=== PATIENT | female | born 1940 | race Caucasian/White ===

== ENCOUNTER 2021-08-25 14:20 | Observation (INO) | payer MEDICARE, SELFPAY ==
[2021-08-25] VITALS (79 sets, daily range): BP systolic 102–150; BP diastolic 46–104; PULSE 50–77; RESP 11–23; TEMP 36.7–37.1; O2SAT 65–100
--- NOTE | ~2021-08-25 | XR_ITS ---
EXAMINATION: XR chest 1V portable Exam Date/Time: 08/25/2021 15:20 CDT CLINICAL HISTORY: cardioversion, POOR HISTORIAN, HTN Comparison: None available RESULT: Lines, tubes, and devices: None. Lungs and pleura: Calcified left upper lung granuloma. Senescent changes. Left lower and right basil ar scarring. Cardiomediastinal silhouette: Aortic arch calcifications, otherwise unremarkable cardiomediastinal s ilhouette. Other: No acute osseous or upper abdominal finding. IMPRESSION: No acute cardiopulmonary process. Reviewed, dictated and finalized at location K.
--- NOTE | 2021-08-25 14:28 | ECG_ITS ---
Measurements Intervals [place] Rate: 63 P: -39 MD: 170 QRS: -35 QRSD: 143 T: 147 QT: 433 QTc: 444 Interpretive Statements SINUS RHYTHM WITH OCCASIONAL VENTRICULAR PREMATURE COMPLEXES MARKED LEFT AXIS DEVIATION [QRS AXIS < -30] INTRAVENTRICULAR CONDUCTION DELAY [130+ ms QRS DURATION] NO PREVIOUS ECG AVAILABLE FOR COMPARISON Electronically Signed On 08-26-2021 6:58:00 CDT by Hailey Franco M.D.
--- NOTE | 2021-08-25 14:43 | PC.NURSE ---
Pt to ER via [facility]. Pt was reportedly cardioverted during transport and had an improvement in condition. pt was also given amiodarone 150 mg bolus. pt is in no acute distress, only c/o being cold. Cardiac monitoring and defib on patient at this time. Son is at bedside. Will monitor patient for change in condition. Pt was seen at time of arrival by BRITTA Shah.
--- NOTE | 2021-08-25 14:45 | ED.SYNCOPE ---
HPI - Syncope General Chief Complaint: Syncope <Hernan Shah MD - Last Filed: 08/26/21 06:53> Stated Complaint: s/p syncope, vtach, cardioversion <Hernan Shah MD - Last Filed: 08/26/21 06:53> Time Seen by Provider: 08/25/21 14:33 <Hernan Shah MD - Last Filed: 08/26/21 06:53> Source: patient, EMS and RN notes reviewed <Hernan Shah MD - Last Filed: 08/26/21 06:53> History of Present Illness HPI narrative: Patient presents with syncope. Patient was at the [facility] when she passed out and EMS was called and patient was noted to be only responsive to sternal rub. EMS did a rhythm check and noted patient was in V. tach there is synchronized cardioversion patient was returned to normal sinus rhythm and became alert and responsive. EMS also gave 150 of amiodarone and transported the patient to the ER for further evaluation. Patient has no complaints at this time. She denied prodrome prior to the event such as chest pain shortness of breath or lightheadedness. Patient reports she just passed out. She denies any recent complaints of chest pain or lightheadedness denies any recent cough, congestion or fevers. She denies any major changes in appetite. Patient reports prior history of PR several years ago she does see cardiology Dr. Barr in [place]. <Hernan Shah MD - Last Filed: 08/26/21 06:53> Related Data Home Medications: Home Medications Medication Instructions Recorded Confirmed carvedilol 6.25 mg PO BID 08/25/21 08/25/21 nitroglycerin 0.4 mg SUBLINGUAL Q5-15M PRN 08/25/21 08/25/21 quinapril 10 mg PO DAILY 08/25/21 08/25/21 simvastatin 40 mg PO HS 08/25/21 08/25/21 spironolactone 25 mg PO DAILY 08/25/21 08/25/21 <Hernan Shah MD - Last Filed: 08/26/21 06:53> Allergies/Adverse Reactions: Allergies Allergy/AdvReac Type Severity Reaction Status Date / Time No Known Allergies Verified 10/16/10 10:06 <Hernan Shah MD - Last Filed: 08/26/21 06:53> Review of Systems Review of Systems: CONSTITUTIONAL: Denies fever, chills, or sweats. EYES: Denies visual changes, redness, or discharge. ENT: Denies rhinorrhea, congestion, sore throat, or otalgia. CARDIOVASCULAR: Denies chest pain, palpitations, or edema. RESPIRATORY: Denies cough or dyspnea. GASTROINTESTINAL: Denies abdominal pain, nausea, vomiting, or diarrhea. GENITOURINARY: Denies dysuria or hematuria. SKIN: Denies rash or itching. MUSCULOSKELETAL: Denies back pain, joint pain, or myalgia. NEUROLOGIC: Denies headache, numbness, dizziness, or weakness. PSYCHIATRIC: Denies anxiety or depression. <Hernan Shah MD - Last Filed: 08/26/21 06:53> All systems reviewed & are unremarkable except as noted in HPI and below <Hernan Shah MD - Last Filed: 08/26/21 06:53> [facility] Past Medical History Medical History: Medical History (Updated 08/26/21 @ 04:00 by Sherine Chaudhari DO) Acquired female bladder prolapse CHF (congestive heart failure) Coronary artery disease Possible old PR noted on her EKG Dementia Diabetes mellitus type 2, diet-controlled Hyperlipidemia Hypertension <Hernan Shah MD - Last Filed: 08/26/21 06:53> Surgical History Surgical History: Surgical History (Updated 08/26/21 @ 03:54 by Sherine Chaudhari DO) History of bilateral cataract extraction History of carpal tunnel surgery of right wrist <Hernan Shah MD - Last Filed: 08/26/21 06:53> Family History Family History: Family History (Updated 08/26/21 @ 03:53 by Sherine Chaudhari DO) Mother Diabetes mellitus Cancer Father Cancer <Hernan Shah MD - Last Filed: 08/26/21 06:53> Social History Social History: Social History Social History: The patient lives in her own house. Her son lives next door. Smoking status: Never smoker Alcohol intake: former Spiritual care concerns: No <Hernan Miguel
[2021-08-25 14:59] LABS: Basophils Percent Auto 0.5 % (0.2-1.2); Eosinophils Absolute Auto 0.2 K/mm3 (0-0.3); Eosinophils Percent Auto 4.5 % (0-4.4); Hematocrit 35.7 % (37.0-47.0); Hemoglobin 11.5 g/dL (12.0-15.0); Immature Granulocyte Absolute 0.01 K/mm3 (0.00-0.031); Immature Granulocyte Percent A 0.2 % (0-0.5); Lymphocytes Absolute Auto 1.61 K/mm3 (0.9-3.2); Mean Corpuscular HGB Conc 32.2 g/dl (32-36); Mean Corpuscular Hemoglobin 32.1 pg (26-34); Mean Corpuscular Volume 99.7 fl (80-100); Mean Platelet Volume 11.1 fl (7.4-10.4); Monocytes Absolute Auto 0.6 K/mm3 (0.1-0.6); Neutrophils Absolute Auto 1.9 K/mm3 (1.3-6.7); Neutrophils Percent Auto 43.8 % (45.5-73.1); Platelet Count Result 159 k/mm3 (150-375); Red Blood Count 3.58 M/mm3 (4.2-5.4); Red Cell Distribution Width 12.5 % (11.5-14.5); White Blood Count 4.2 K/mm3 (4.5-10.0)
[2021-08-25 15:05] LABS: INR 1.1; Prothrombin Time 13.6 Seconds (11.1-14.7)
[2021-08-25 15:06] LABS: Alanine Aminotransferase 54 U/L (4-35); Albumin Level 4.3 g/dL (3.5-5.1); Alkaline Phosphatase 79 U/L (38-126); Anion Gap 10 mmol/L (8-16); Aspartate Amino Transferase 103 U/L (14-36); Bilirubin,Total 1.4 mg/dL (0.2-1.3); Blood Urea Nitrogen 44 mg/dL (7-17); Calcium 8.7 mg/dL (8.4-10.2); Carbon Dioxide 23 mmol/L (22-30); Chloride 104 mmol/L (98-107); Estimated CRCL calculation 26 ml/min; Estimated Glomerular Filt Rate 36; Glucose 154 mg/dL (65-110); Lipase 151 U/L (23-300); Partial Thromboplastin Time 27.2 SECONDS (22.3-36.8); Potassium 5.1 mmol/L (3.4-5.0); Sodium 137 mmol/L (137-145)
[2021-08-25] MEDS: AMIODARONE 360 MG/D5W 200 ML 360 MG/200 ML BAG 33.33 MG IVPB (15:11)
[2021-08-25 15:17] LABS: Troponin I 0.025 ng/mL (0.000-0.034)
--- NOTE | 2021-08-25 16:23 | PC.NURSE ---
Pt is to be transferred to [facility] for further workup and evaluation. Awaiting call back from transfer center. Pt is in no acute distress at this time.
--- NOTE | 2021-08-25 16:41 | PC.NURSE ---
Family made aware of need to transfer. Agreeable at this time.
--- NOTE | 2021-08-25 16:43 | PC.NURSE ---
Negative COVID required transfer.
--- NOTE | 2021-08-25 17:03 | PC.NURSE ---
Lab called to expedite COVID swab for transfer. Pt family at bedside.
[2021-08-25 17:31] LABS: SARS-CoV-2 RNA PCR Negative
[2021-08-25 17:34] LABS: Troponin I 0.032 ng/mL (0.000-0.034)
--- NOTE | 2021-08-25 17:47 | PC.NURSE ---
Transfer center updated with negative COVID swab. Pt is waiting for ICU bed, states that it will be awhile before transfer occurs.
[2021-08-25] MEDS: AMIODARONE 360 MG/D5W 200 ML 360 MG/200 ML BAG 16.67 MG IV CONT (20:53)
[2021-08-25 20:56] LABS: Troponin I 0.047 ng/mL (0.000-0.034)
--- NOTE | 2021-08-25 23:00 | PC.NURSE ---
Report from Dana BOTELLO
[2021-08-26] VITALS (12 sets, daily range): BP systolic 114–153; BP diastolic 51–69; PULSE 50–62; RESP 11–18; TEMP 36.1–36.4; O2SAT 97–100; BMI 25.0
--- NOTE | 2021-08-26 00:19 | PC.NURSE ---
Reaching out to Transfer center to discuss bed situation or timeline for transfer.
--- NOTE | 2021-08-26 00:34 | PC.NURSE ---
This RN spoke with staff at [facility] transfer center, and they report no ICU beds available for patients until at least tomorrow. ED MD Dr. Lee notified.
--- NOTE | 2021-08-26 01:57 | PC.NURSE ---
Sbar faxed to ICU 7
--- NOTE | 2021-08-26 02:13 | PC.NURSE ---
called [facility] for ETA update. ETA [id number]
--- NOTE | 2021-08-26 02:45 | PC.NURSE ---
Pt found trying to climbing out of bed. Pt assisted back to bed. Pt reorientated. Lissy ORCHID WORKER made aware of pts attempt to crawl out of bed. Pts son Leodan made aware of pts transfer to ICU
--- NOTE | 2021-08-26 02:50 | ADMGEN ---
This patient, Radha Santoro, was admitted to Intensive Care Unit-7. Patient/family oriented to hospital policies and general routines including ID bracelet, bed and alarms, visiting hours, pain management, procedures, bathroom and other care routines, personal items, smoking policy, room service/diet, and visiting hours. Information on how to activate the Rapid Response Team has been discussed. Patient/Family are encouraged to report perceived risks to care and to ask questions if they do not understand what they are told or what they should do.
--- NOTE | 2021-08-26 03:25 | PM.IMHP ---
H&P: HPI History of Present Illness Date/Time: 08/26/21 03:25 Chief Complaint: Unresponsive Narrative: H&P/transfer summary 80-year-old female with past medical history of dementia, [place], CHF, hypertension, hyperlipidemia, diet-controlled diabetes and rheumatoid arthritis who presented to the ER after having an unresponsive episode at the [facility]. When EMS arrived on the scene and found the patient in V-tach the patient underwent cardioversion with return to spontaneous rhythm. The patient became alert unresponsive. EMS administered 150 mg of amiodarone the patient gives the ER for further evaluation. According to the ER note the patient did not have any prodrome or chest pain prior to her collapse. The patient is unable to provide me with any significant history and she is only oriented to name and date of . The patient does state that she wears pads all the time at home. She denies any chest pain or shortness of breath currently but is hard to redirect. For the most part since she has arrived to the hospital she has been in sinus rhythm or sinus bradycardia. The patient has symptoms of dementia at home but has not received official diagnosis. Evidently when the patient collapsed and was unresponsive at the store the family members gave the patient some sublingual nitro before EMS arrived. Source of information is ER records and external medication reconciliation. The patient's son was contacted by nursing staff and was a poor historian and could not give much information. Review of Systems Review of Systems: ROS unobtainable: Yes unobtainable due to mental status PMFSH Past Medical History Medical History (Updated 08/26/21 @ 04:00 by Sherine Chaudhari DO) Acquired female bladder prolapse CHF (congestive heart failure) Coronary artery disease Possible old [place] noted on her EKG Dementia Diabetes mellitus type 2, diet-controlled Hyperlipidemia Hypertension Surgical History Surgical History (Updated 08/26/21 @ 03:54 by Sherine Chaudhari DO) History of bilateral cataract extraction History of carpal tunnel surgery of right wrist Family History Family History (Updated 08/26/21 @ 03:53 by Sherine Chaudhari DO) Mother Diabetes mellitus Cancer Father Cancer Social History Social History Social History: The patient lives in her own house. Her son lives next door. Smoking status: Never smoker Alcohol intake: former Spiritual care concerns: No Meds Home Medications and Allergies Home Medications Medication Instructions Recorded Confirmed Type carvedilol 6.25 mg PO BID 08/25/21 08/25/21 History nitroglycerin 0.4 mg SUBLINGUAL Q5-15M PRN 08/25/21 08/25/21 History quinapril 10 mg PO DAILY 08/25/21 08/25/21 History simvastatin 40 mg PO HS 08/25/21 08/25/21 History spironolactone 25 mg PO DAILY 08/25/21 08/25/21 History Allergies Allergy/AdvReac Type Severity Reaction Status Date / Time No Known Allergies Verified 10/16/10 10:06 Vital Signs Vital Signs - 24 hr 08/25/21 14:15 08/25/21 14:29 08/25/21 14:45 Temperature 98.1 F Pulse Rate 59 L 54 L Respiratory Rate 18 18 Blood Pressure 134/68 Pulse Oximetry 97 97 08/25/21 14:47 08/25/21 14:57 08/25/21 15:11 Temperature Pulse Rate 50 L 65 68 Respiratory Rate 16 16 Blood Pressure 127/86 121/67 120/62 Pulse Oximetry 97 65 L 08/25/21 15:17 08/25/21 15:21 08/25/21 15:27 Temperature Pulse Rate 66 77 69 Respiratory Rate 18 18 18 Blood Pressure 120/55 L 119/57 L 121/57 L Pulse Oximetry 98 98 99 08/25/21 15:39 08/25/21 15:48 08/25/21 16:00 Temperature Pulse Rate 65 66 66 Respiratory Rate 18 16 18 Blood Pressure 120/54 L 128/57 L 119/46 L Pulse Oximetry 100 100 100 08/25/21 16:07 08/25/21 16:19 08/25/21 16:31 Temperature Pulse Rate 68 67 66 Respiratory Rate 18 16 18 Blood Pressure 115/62 128/53 L 127/54 L Pulse Oximetry 99 99
--- NOTE | 2021-08-26 04:50 | PC.NURSE ---
Called tere [facility] to make aware that bed for [facility] was received and that patient was transferring per ambulance now. Room number, name of nurse, and phone number provided for [facility] ICU.
== END 2021-08-26 04:58 | disposition short-term general hospital (02) ==
LOC: ANHED 16:45 → ANHICU 08-26 01:58
PROVIDERS: Admitting Provider Internal Medicine; Emergency Provider Emergency Medicine; PCP Physician Assistant; Visit Provider Internal Medicine
DX: I47.2 Ventricular tachycardia (principal); R55 Syncope and collapse; I11.0 Hypertensive heart disease with heart failure; I50.9 Heart failure, unspecified; I25.10 Atherosclerotic heart disease of native coronary artery without angina pectoris; I25.2 Old myocardial infarction; E78.5 Hyperlipidemia, unspecified; E11.9 Type 2 diabetes mellitus without complications; F03.90 Unspecified dementia, unspecified severity, without behavioral disturbance, psychotic disturbance, mood disturbance, and anxiety; Z20.822 Contact with and (suspected) exposure to COVID-19
CPT/HCPCS: 36415; 71045; 80053; 83690; 84484; 85025; 85610; 85730; 93005; 96365; 96366; 99285; C9803; G0378; J0282; U0003; U0005